=== PATIENT | female | born 1975 | race American Indian/Alaskan Native ===

== ENCOUNTER 2019-02-09 05:07 | Inpatient (IN) | payer OTHER ==
[2019-02-09] MEDS ORDERED: SOLU-Medrol IM ONE (05:38)
[2019-02-09] MEDS ORDERED: DUONEB *Not for PRN Use IH ONE ×2 (05:38→06:55)
--- NOTE | 2019-02-09 05:55 | Emergency Department Report ---
<JOVANNA CHAPMAN - Last Filed: 02/09/19 07:42> ED Shortness of Breath HPI - General Chief Complaint: Adult Asthma Stated Complaint: DIFFICULTY IN BREATHING Time Seen by Provider: 02/09/19 05:50 Source: patient, family Mode of arrival: Ambulatory Limitations: No Limitations - History of Present Illness Initial Comments: Patient is a 44-year-old -[place] female with a history of asthma presents to the ED with complaint of acute onset persistent shortness of breath with wheezing and dry cough for the last 12 hours. Patient also complains of nasal and sinus congestion. Patient states that she has been using her albutero l nebulizer home with no relief. Patient states that the last time she used albuterol nebulizer was 3 hours ago, and even then there was no relief. Patient denies fever, chills, nausea, vomiting, dizziness, chest pain, abdominal pain, sore throat, headache, palpitations or neck pain and change in vision. MD Complaint: shortness of breath, cough, "asthma attack" -: Sudden, hour(s) (12) Severity: severe Pain Scale: 7 Quality: dull, aching Consistency: constant Improves With: nothing Worsens With: nothing Known History Of: asthma Context: recent URI Associated Symptoms: denies other symptoms, cough Treatments Prior to Arrival: bronchodilator - Related Data Home Oxygen Therapy: No ED Review of Systems Comment: All other systems reviewed and negative Constitutional: no symptoms reported, see HPI. denies: chills, fever, malaise, weakness Eyes: as per HPI. denies: eye pain, eye discharge, vision change ENT: congestion. denies: ear pain, throat pain, dental pain, hearing loss Respiratory: no symptoms reported, cough, shortness of breath, wheezing. denies: SOB with exertion Cardiovascular: as per HPI. denies: chest pain, palpitations, dyspnea on exertion, edema, syncope, paroxysmal nocturnal dyspnea Endocrine: no symptoms reported, see HPI. denies: excessive sweating, flushing, intolerance to cold, intolerance to heat, increased hunger, increased thirst, increased urine, unexplained weight gain Gastrointestinal: as per HPI. denies: abdominal pain, nausea, diarrhea Genitourinary: as per HPI. denies: urgency, dysuria, discharge Musculoskeletal: as per HPI. denies: back pain, joint swelling, arthralgia Skin: as per HPI. denies: rash, lesions Neurological: as per HPI. denies: headache, weakness, paresthesias Psychiatric: as per HPI. denies: anxiety, depression Hematological/Lymphatic: as per HPI. denies: easy bleeding, easy bruising ED Past Medical Hx - Past Medical History Previous Medical History?: Yes Hx Hypertension: Yes Hx Asthma: Yes - Surgical History Past Surgical History?: No - Social History Smoking Status: Former Smoker Substance Use Type: None ED Physical Exam - General Limitations: No Limitations General appearance: alert, in no apparent distress - Head Head exam: Present: atraumatic, normocephalic, normal inspection - Eye Eye exam: Present: normal appearance, PERRL, EOMI. Absent: scleral icterus, conjunctival injection - ENT ENT exam: Present: normal exam, mucous membranes moist, TM's normal bilaterally, normal external ear exam - Neck Neck exam: Present: normal inspection, full ROM. Absent: tenderness, meningismus, lymphadenopathy, thyromegaly - Respiratory Respiratory exam: Present: wheezes (moderately diffuse coarse wheezes throughout). Absent: respiratory distress, rales, rhonchi, chest wall tenderness, accessory muscle use, decreased breath sounds, prolonged expiratory - Cardiovascular Cardiovascular Exam: Present: normal rhythm, tachycardia, normal heart sounds. Absent: systolic murmur, diastolic murmur, rubs, gallop - GI/Abdominal GI/Abdominal exam: Present: soft, normal bowel sounds. Absent: tenderness, guarding, rebound, hyperactive bowel sounds, hypoactive bowel sounds, organomegaly - Rectal Rectal exam: Present: deferred - Extremities Exam Extremities exam: Present: normal inspection, full ROM, normal capillary refill - Back Exam Back exam: Present: normal inspection. Absent: full ROM, tenderness, CVA tenderness (R), CVA tenderness (L), muscle spasm, paraspinal tenderness, vertebral tenderness - Neurological Exam Neurological exam: Present: alert, oriented X3, CN II-XII intact, normal gait, reflexes normal - Psychiatric Psychiatric exam: Present: normal affect, normal mood - Skin Skin exam: Present: warm, dry, intact, normal color. Absent: rash ED Course - Reevaluation(s) Reevaluation #1: 02/09/19 07:42 Patient is alert and oriented 3 and is not in distress. Chest x-ray shows no acute cardiopulmonary abnormalities. Patient was treated in the ED with DuoNeb treatment, Solu-Medrol. Labs were drawn. On reevaluation, patient still wheezing and tight. Another DuoNeb was ordered as well as ABG. ED Medical Decision Making - Lab Data Result diagrams: 02/09/19 07:04 02/09/19 07:04 - Radiology Data Radiology results: report reviewed, image reviewed NO ACUTE CARDIOPULMONARY ABNORMALITY - Medical Decision Making Patient is alert and oriented 3 and is not in distress. Chest x-ray shows no acute cardiopulmonary abnormalities. Patient was treated in the ED with DuoNeb treatment, Solu-Medrol. Labs were drawn. On reevaluation, patient still wheezing and tight. Another DuoNeb was ordered as well as ABG. Patient care was transferred to Ms. Ba Mack PA-C at shift change. Ms. Garcia shall review lab test results and reevaluate the patient and make a ppropriate disposition - Differential Diagnosis asthma exacerabion, acute URI, Shortness of breath ED Disposition Clinical Impression: Asthmatic bronchitis with acute exacerbation Qualifiers: Asthma severity: mild Asthma persistence: intermittent Qualified Code(s): J45.21 - Mild intermittent asthma with (acute) exacerbation Disposition: OP ADMIT IP TO THIS HOSP Condition: Stable Instructions: Asthma (ED) Referrals: ANATOLIY TRIANA MD [Primary Care Provider] - 3-5 Days <DALLIN GARCIA - Last Filed: 02/09/19 08:53> ED Review of Systems ROS: Stated complaint: DIFFICULTY IN BREATHING Other details as noted in HPI ED Physical Exam - Respiratory Respiratory exam: Present: wheezes - Cardiovascular Cardiovascular Exam: Present: tachycardia - Neurological Exam Neurological exam: Present: alert, oriented X3 - Psychiatric Psychiatric exam: Present: normal affect, normal mood - Skin Skin exam: Present: warm, dry, intact, normal color. Absent: rash ED Course Vital Signs 02/09/19 02/09/19 05:11 08:01 Temperature 98.8 F 98.8 F Pulse Rate 111 H 116 H Respiratory 22 22 Rate Blood Pressure 181/114 Blood Pressure 148/88 [Right] O2 Sat by Pulse 96 96 Oximetry ED Medical Decision Making - Lab Data Result diagrams: 02/09/19 07:04 02/09/19 07:04 - Medical Decision Making Patient's alert and oriented 3. Reevaluation of patient she is still wheezing and tight. She started Tachycardic. Spoke to Dr. Myles regards the patient needs to be admitted. ABG was ordered by my colleague. Levaquin 500 mg IV ordered to give the patient now will consult hospitalist for evaluation to be admitted for asthma exacerbation. Discussed with Dr. Campos hospitalist to admit patient to medical surgical unit for asthma exacerbation. Also woke magnesium 2 mg IV now. Patient is currently taken a continuous nebulizer treatment in room 40. Critical care attestation.: If time is entered above; I have spent that time in minutes in the direct care of this critically ill patient, excluding procedure time. ED Disposition Is pt being admited?: Yes Does the pt Need Aspirin: No
--- NOTE | 2019-02-09 06:06 | XRay Report ---
PROCEDURE: XR CHEST 1V AP TECHNIQUE: Chest radiograph single view. HISTORY: dyspnea, wheezing, asthma COMPARISONS: None . FINDINGS: No mediastinal shift. Cardiac silhouette is not enlarged. No pneumothorax, effusion, or focal pulmona ry opacity identified. No acute skeletal findings. IMPRESSION: No acute pulmonary finding identified. This document is electronically signed by Maurice Hicks MD., February 09 2019 06:04:10 AM ET
[2019-02-09 07:11] LABS: Basophils # (Auto) 0.1 K/mm3 (0.0-0.1); Basophils % (Auto) 0.7 % (0.0-1.8); Eosinophils # (Auto) 0.4 K/mm3 (0.0-0.4); Eosinophils % (Auto) 3.5 % (0.0-4.3); Hematocrit 38.8 % (30.3-42.9); Hemoglobin 13.2 gm/dl (10.1-14.3); Lymphocytes # (Auto) 1.6 K/mm3 (1.2-5.4); Lymphocytes % (Auto) 16.1 % (13.4-35.0); Mean Corpuscular HGB Conc 34 % (30-34); Mean Corpuscular Volume 91 fl (79-97); Monocytes # (Auto) 0.7 K/mm3 (0.0-0.8); Monocytes % (Auto) 6.5 % (0.0-7.3); Platelet Count 421 K/mm3 (140-440); Red Blood Count 4.25 M/mm3 (3.65-5.03); Red Cell Distribution Width 14.6 % (13.2-15.2)
[2019-02-09 07:30] LABS: Alanine Aminotransferase 16 units/L (7-56); Albumin 4.3 g/dL (3.9-5); BUN/Creatinine Ratio 15; Blood Urea Nitrogen 6 mg/dL (7-17); Hemolysis Index 23
[2019-02-09] MEDS ORDERED: LEVAQUIN 500MG/100ML 500 MG/100 ML BAG IV ONE (08:02)
[2019-02-09 08:20] LABS: HCG Qualitative,Urine Negative (Negative)
[2019-02-09 08:24] LABS: Bacteria,Urine 1+ /HPF (Negative); Bilirubin,Urine NEG (Negative); Blood,Urine NEG (Negative); Color,Urine Straw (Yellow); Protein,Urine <15 mg/dL mg/dL (Negative); Urobilinogen,Urine < 2.0 mg/dL (<2.0); WBC,Urine < 1.0 /HPF (0.0-6.0)
[2019-02-09] MEDS ORDERED: ATROVENT IH ONE (08:39)
[2019-02-09] MEDS ORDERED: PROVENTIL IH ONE (08:39)
[2019-02-09] MEDS ORDERED: MAGNESIUM SULFATE 2GM/50ML 2 GM/50 ML BAG IV ONE (08:52)
[2019-02-09] MEDS ORDERED: REGLAN IV PRN (10:44)
--- NOTE | 2019-02-09 10:50 | History and Physical Report ---
History of Present Illness Date of admission: 02/09/19 08:51 Chief complaint: SOB History of present illness: Patient is a 44 yo woman with a history of Asthma and Hypertension who presents to [facility] ED with SOB, wheezing and non productive excessive coughing with substernal chest pains that started by about 1 days ago. She drove 11 hours to [place], [place] for and returned Wednesday, January 30, 2019. 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 She tried 3 albuterol nebulizer treatments without any relief of the SOB. Over the last week she has been experiencing BADILLO with minimal activity. She did have left sided chest pains, described as a transient catching sensation about 1 week ago. The SOB is now constant, at rest and worsening without relieving factors. The substernal chest pains is non-radiating, intermittent and only occurs with coughing. She denies fever, chills, n/v/abd pains, severe headaches. She will be admitted for Acute severe persistent asthma exacerbation failing outpatient therapy associated with slight hypoexemia on ABG. PMH: as hpi PSH: Tubal ligation, LOOP steeple jack procedure SH: nonsmoker but does smoke, occasional ETOH, no illegal drugs FH: Father of heart attack age 42, mother has hypertension PCP: Magi Lucas [place] ROS: Constitutional: denies: fever ENT: denies: throat or neck pain Respiratory: + cough, shortness of breath Cardiovascular: + chest pain Endocrine: denies unexplained weight loss or gain Gastrointestinal: denies: abdominal pain, nausea Genitourinary: denies: dysuria Rectal: denies no incontinence, no bleeding, no itching, no discharge Musculoskeletal: denies swelling, myaglia, muscle weakness Skin: denies: rash Neurological: denies: headache Hematological/Lymphatic: denies: easy bleeding or easy bruising Allergic/Immunologic: no urticaria, no allergic rhinitis, no anaphylaxis Psych: denies sadness or hopelessness, SI/HI Medications and Allergies Allergies Allergy/AdvReac Type Severity Reaction Status Date / Time tramadol Allergy Nausea Verified 02/09/19 09:20 lisinopril AdvReac Angioedema Verified 02/09/19 09:20 Home Medications Medication Instructions Recorded Confirmed Last Taken Type Aspirin 325 mg PO QDAY 02/09/19 02/09/19 Unknown History Levalbuterol Tartrate [Xopenex Hfa] 15 gm IH PRN 02/09/19 02/09/19 Unknown History amLODIPine [Norvasc] 5 mg PO DAILY 02/09/19 02/09/19 02/09/19 History hydroCHLOROthiazide [HCTZ] 25 mg PO QDAY 02/09/19 02/09/19 02/09/19 History Active Meds: Active Medications Acetaminophen (Tylenol) 650 mg PO Q6H PRN PRN Reason: Non Cardiac Pain or Temp>100.5 Albuterol (Proventil) 2.5 mg IH Q4HRT PRN PRN Reason: Shortness Of Breath Albuterol/Ipratropium (Duoneb *Not For Prn Use*) 1 ampul IH QIDRT [facility] Heparin Sodium (Porcine) (Heparin) 5,000 unit SUB-Q Q12HR [facility] Levofloxacin (Levaquin) 750 mg PO Q24HR PRITI Methylprednisolone Sodium Succinate (Solu-Medrol) 80 mg IV Q8HR PRITI Pantoprazole Sodium (Protonix) 40 mg PO QDAY PRITI Polyethylene Glycol (Miralax 3350) 17 gm PO QDAY PRN PRN Reason: Constipation Potassium Chloride (K-Dur) 40 meq PO ONCE ONE Stop: 02/09/19 10:44 Zolpidem Tartrate (Ambien) 5 mg PO QHS PRN PRN Reason: Sleep Exam - Physical Exam Narrative exam: Gen: WDWN, NAD, Awake, Alert, Orientated x 3, BMI 50.4 HEENT: NCAT, EOMI, PERRL, OP Clear Neck: supple, no adenopathy, no thyromegaly, no JVD CVS/Heart: RRR, normal S1S2, pulses present bilaterally Chest/Lungs: diminished bs bilateral, bilateral wheezing, Symmetrical chest expansion, good air entry bilaterally GI/Abdomen: soft, NTND, good bowel sounds, no guarding or rebound /Bladder: no suprapubic tenderness, no CVA or paraspinal tenderness Extermity/Skin: no c/c/e, no obvious rash MSK: FROM x 4 Neuro: CN 2-12 grossly intact, no new focal deficits Psych: calm - Constitutional Vitals: Temp Pulse Resp BP Pulse Ox 98.9 F 126 H 18 134/76 97 02/09/19 10:25 02/09/19 10:25 02/09/19 10:25 02/09/19 10:25 02/09/19 10:25 Results - Labs CBC & Chem 7: 02/09/19 07:04 02/09/19 07:04 Labs: Abnormal lab results 02/09/19 02/09/19 02/09/19 Range/Units 07:04 07:04 08:37 Seg Neutrophils % 73.2 H (40.0-70.0) % POC ABG pCO2 30.1 L (35-45) POC ABG pO2 63 L (80-105) Potassium 3.4 L (3.6-5.0) mmol/L BUN 6 L (7-17) mg/dL Creatinine 0.4 L (0.7-1.2) mg/dL Glucose 113 H (65-100) mg/dL Total Protein 8.6 H (6.3-8.2) g/dL Assessment and Plan Patient is a 44 yo woman with a history of Asthma and Hypertension who presents to [facility] ED with SOB, wheezing and non productive excessive coughing with substernal chest pains that started by about 1 days ago. She drove 11 hours to [place], [place] for and returned Wednesday, January 30, 2019. 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 She tried 3 albuterol nebulizer treatments without any relief of the SOB. Over the last week she has been experiencing BADILLO with minimal activity. She did have left sided chest pains, described as a transient catching sensation about 1 week ago. The SOB is now constant, at rest and worsening without relieving factors. The substernal chest pains is non-radiating, intermittent and only occurs with coughing. She denies fever, chills, n/v/abd pains, severe headaches. She will be admitted for Acute severe persistent asthma exacerbation failing outpatient therapy associated with slight hypoexemia on ABG. -Acute Asthmatic Bronchitis with exacerbation: treat with different neb than albuterol, use Duoneb around the clock, treat with iv steroid and Levaquin -Suspect Acute hypoxic respiratory failure: treat with O2, nebs, consulted Pulmonology -Hypoxia and long distance travel: get D-dimer, if abnormal, will evaluate for PE and DVT -Morbid Obesity, bmi 50.4: area counselor on weight reduction, check TSH -Hypokalemia: replete and recheck in am as well as Magnesium level -Chest pains, with risk factors: area counselor on needing stress test when this current illness subsides, check Troponin and lipids -DVT prophylaxis: sq heparin -Second hand smoke exposure: counseled at bedside to stop smoking. Medical Reconciliation done full code CCT 32 minutes
[2019-02-09] MEDS: TYLENOL PO PRN (11:25)
[2019-02-09] MEDS ORDERED: K-DUR PO ONE (12:00)
[2019-02-09] MEDS ORDERED: MIRALAX 3350 PO PRN (12:00)
[2019-02-09] MEDS ORDERED: PROVENTIL IH PRN (12:00)
[2019-02-09] MEDS: NORVASC PO SCH (12:11)
[2019-02-09] MEDS: ASPIRIN PO SCH (12:12)
[2019-02-09] MEDS: PROTONIX PO SCH (12:17)
[2019-02-09] MEDS: DUONEB *Not for PRN Use IH SCH ×3 (12:19→19:59)
--- NOTE | 2019-02-09 12:43 | Consultation ---
History of Present Illness Consult date: 02/09/19 Requesting physician: ARMAAN POLLARD Reason for consult: asthma, hypoxemia History of present illness: 44 y/o obese female, admitted with acute exacerbation of asthma. Patient denies any recent sick contacts, changes in medications or any other changes. At baseline her asthma is very well controlled as she is only on a rescue inhaler as needed and no maintenance therapy. Yesterday her breathing acutely got worse but has been abnormal since arriving back from [facility] after driving there. She does have some pleuritic type chest pain. Past History Past Medical History: hypertension, other (asthma) Social history: no significant social history Family history: no significant family history Medications and Allergies Allergies Allergy/AdvReac Type Severity Reaction Status Date / Time tramadol Allergy Nausea Verified 02/09/19 09:20 lisinopril AdvReac Angioedema Verified 02/09/19 09:20 Home Medications Medication Instructions Recorded Confirmed Last Taken Type Aspirin 325 mg PO QDAY 02/09/19 02/09/19 Unknown History Levalbuterol Tartrate [Xopenex Hfa] 15 gm IH PRN 02/09/19 02/09/19 Unknown History amLODIPine [Norvasc] 5 mg PO DAILY 02/09/19 02/09/19 02/09/19 History hydroCHLOROthiazide [HCTZ] 25 mg PO QDAY 02/09/19 02/09/19 02/09/19 History Active Meds: Active Medications Acetaminophen (Tylenol) 650 mg PO Q6H PRN PRN Reason: Non Cardiac Pain or Temp>100.5 Last Admin: 02/09/19 11:25 Dose: 650 mg Documented by: Albuterol (Proventil) 2.5 mg IH Q4HRT PRN PRN Reason: Shortness Of Breath Albuterol/Ipratropium (Duoneb *Not For Prn Use*) 1 ampul IH QIDRT [facility] Last Admin: 02/09/19 12:19 Dose: 1 ampul Documented by: Amlodipine Besylate (Norvasc) 5 mg PO DAILY [facility] Last Admin: 02/09/19 12:11 Dose: 5 mg Documented by: Aspirin (Aspirin) 325 mg PO QDAY [facility] Last Admin: 02/09/19 12:12 Dose: 325 mg Documented by: Heparin Sodium (Porcine) (Heparin) 5,000 unit SUB-Q Q12HR [facility] Hydrochlorothiazide (Hctz) 25 mg PO QDAY [facility] Levofloxacin (Levaquin) 750 mg PO Q24HR [facility] Methylprednisolone Sodium Succinate (Solu-Medrol) 80 mg IV Q8HR PRITI Metoclopramide HCl (Reglan) 10 mg IV Q8H PRN PRN Reason: Nausea And Vomiting Pantoprazole Sodium (Protonix) 40 mg PO QDAY [facility] Last Admin: 02/09/19 12:17 Dose: 40 mg Documented by: Polyethylene Glycol (Miralax 3350) 17 gm PO QDAY PRN PRN Reason: Constipation Zolpidem Tartrate (Ambien) 5 mg PO QHS PRN PRN Reason: Sleep Review of Systems All systems: negative Physical Examination Vital signs: Vital Signs Temp Pulse Resp BP Pulse Ox 98.8 F 111 H 22 181/114 96 02/09/19 05:11 02/09/19 05:11 02/09/19 05:11 02/09/19 05:11 02/09/19 05:11 General appearance: alert, appears uncomfortable Eyes: non-icteric ENT: oropharynx moist Neck: supple, other (large in circumference) Effort: mildly labored Ascultation: Bilateral: wheezes Percussion: Bilateral: not dull Tactile fremitus: Bilateral: normal Cardiovascular: regular rate and rhythm Gastrointestinal: normoactive bowel sounds, soft Extremities: no edema Musculoskeletal: no deformities normal mental status, non-focal exam Results - Laboratory Findings CBC and BMP: 02/09/19 07:04 02/09/19 07:04 ABG POC ABG pH 7.444 (7.35-7.45) 02/09/19 08:37 POC ABG pCO2 30.1 (35-45) L 02/09/19 08:37 POC ABG pO2 63 (80-105) L 02/09/19 08:37 POC ABG HCO3 20.6 (22-26 mml/L) 02/09/19 08:37 POC ABG Total CO2 22 (23-27mmol/L) 02/09/19 08:37 POC ABG O2 Sat 93 02/09/19 08:37 PT/INR, D-dimer 591.51 ng/mlDDU (0-234) H 02/09/19 10:57 Abnormal lab findings: Abnormal Labs 02/09/19 02/09/19 02/09/19 07:04 07:04 08:37 Seg Neutrophils % 73.2 H D-Dimer POC ABG pCO2 30.1 L POC ABG pO2 63 L Potassium 3.4 L BUN 6 L Creatinine 0.4 L Glucose 113 H Total Protein 8.6 H 02/09/19 10:57 Seg Neutrophils % D-Dimer 591.51 H POC ABG pCO2 POC ABG pO2 Potassium BUN Creatinine Glucose Total Protein - Diagnostic Findings Chest x-ray: image reviewed (no evidence of acute disease) Assessment and Plan 44 y/o obese female admitted with acute asthma exacerbation 1. Agree with checking CTA to rule out PE given recent history. 2. Will change steroids to 60q6 3. Will add BID pulmicort therapy 4. BP control Will continue to follow with you.
[2019-02-09] MEDS: SOLU-Medrol IV SCH ×3 (13:53→23:52)
[2019-02-09] MEDS ORDERED: SOLU-Medrol IV SCH (14:00)
[2019-02-09] MEDS ORDERED: APRESOLINE IV PRN (14:04)
--- NOTE | 2019-02-09 15:11 | Vascular Lab Report ---
PROCEDURE: VL VENOUS DUPLEX LE BILAT TECHNIQUE: Duplex Doppler sonography of the BILATERAL legs. Collins scale imaging with and without comp ression, spectral waveform analysis with and without augmentation, and color flow Doppler were employ ed. HISTORY: sob COMPARISONS: None FINDINGS: RIGHT LOWER EXTREMITY: Deep Venous Thrombus: None Superficial Venous Thrombus: None Venous valvular incompetence: None Soft tissue abnormality: None LEFT LOWER EXTREMITY: Deep Venous Thrombus: None Superficial Venous Thrombus: None Venous valvular incompetence: None Soft tissue abnormality: None IMPRESSION: No evidence of deep venous thrombosis This document is electronically signed by Scarlett Landrum MD., February 09 2019 03:08:49 PM ET
[2019-02-09] MEDS: PULMICORT IH SCH ×2 (15:20→19:59)
--- NOTE | 2019-02-09 15:45 | Cat Scan Report ---
CTA CHEST: HISTORY: Short of breath, hypoxia, long-distance travel. COMPARISON: none. TECHNIQUE: Helical CT in 1.25mm intervals following IV contrast. Pulmonary embolus protocol. Sagittal and coronal reformatted images. Rotational MIP images. FINDINGS: Contrast bolus is satisfactory. No pulmonary embolus is identified. Thyroid gland: Normal. Tracheobronchial tree: Normal. Esophagus: Normal. Heart: Normal. Pericardium: Normal. Mediastinum: Normal. Lung Mahmood: Normal. Pleural Spaces: Normal. Musculoskeletal: Normal. IMPRESSION: No evidence for pulmonary embolus. Unremarkable CT chest with contrast.
[2019-02-09] MEDS ORDERED: SOLU-Medrol IV ONE (20:34)
[2019-02-09] MEDS: AMBIEN PO PRN (21:50)
[2019-02-10] MEDS: SOLU-Medrol IV SCH ×4 (05:09→23:30)
[2019-02-10] MEDS: PULMICORT IH SCH ×2 (07:39→19:32)
[2019-02-10] MEDS: DUONEB *Not for PRN Use IH SCH ×4 (07:39→19:32)
[2019-02-10 08:09] LABS: Hematocrit 38.2 % (30.3-42.9); Hemoglobin 12.7 gm/dl (10.1-14.3); Mean Corpuscular HGB Conc 33 % (30-34); Mean Corpuscular Volume 92 fl (79-97); Platelet Count 437 K/mm3 (140-440); Red Blood Count 4.16 M/mm3 (3.65-5.03); Red Cell Distribution Width 14.8 % (13.2-15.2)
--- NOTE | 2019-02-10 08:41 | Progress Note ---
Assessment and Plan Assessment and plan: Patient is a 44 yo woman with a history of Asthma and Hypertension who presents to [facility] with SOB, wheezing and non productive excessive coughing with substernal chest pains that started by about 1 days ago. She drove 11 hours to [place], [place] for and returned Wednesday, January 30, 2019. 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 She tried 3 albuterol nebulizer treatments without any relief of the SOB. Over the last week she has been experiencing BADILLO with minimal activity. She did have left sided chest pains, described as a transient catching sensation about 1 week ago. The SOB is now constant, at rest and worsening without relieving factors. The substernal chest pains is non-radiating, intermittent and only occurs with coughing. She denies fever, chills, n/v/abd pains, severe headaches. She will be admitted for Acute severe persistent asthma exacerbation failing outpatient therapy associated with slight hypoexemia on ABG. -Acute Asthmatic Bronchitis with exacerbation: treat with different neb than albuterol, use Duoneb around the clock, treat with iv steroid and Levaquin -Suspect Acute hypoxic respiratory failure: treat with O2, nebs, consulted Pulmonology -Elevated D-dimer with negative CTA chest and venous leg dopplers -Hypoxia and long distance travel: get D-dimer, if abnormal, will evaluate for PE and DVT -Morbid Obesity, bmi 50.4: senior counsel on weight reduction, check TSH -Hypokalemia: replete and recheck in am as well as Magnesium level -Chest pains, with risk factors: senior counsel on needing stress test when this current illness subsides, check Troponin and lipids -DVT prophylaxis: sq heparin -Second hand smoke exposure: counseled at bedside to stop smoking. Medical Reconciliation done full code Disposition: continue inpatient care, anticipate d/c soon. History Interval history: Patient was seen and examined. Follow-up on current diagnosis of Asthma exacerbation with hypoxemia. No overnight events reported to me. Patient denies any chest pain, shortness breath, nausea/vomiting or severe headaches. Imaging, nursing note, chart, labs and old chart reviewed. Discussed with patient. Hospitalist Physical - Physical exam Narrative exam: Gen: WDWN, NAD, Awake, Alert, Orientated x 3, BMI 50.4 HEENT: NCAT, EOMI, PERRL, OP Clear Neck: supple, no adenopathy, no thyromegaly, no JVD CVS/Heart: RRR, normal S1S2, pulses present bilaterally Chest/Lungs: diminished bs bilateral, bilateral wheezing, Symmetrical chest expansion, good air entry bilaterally GI/Abdomen: soft, NTND, good bowel sounds, no guarding or rebound /Bladder: no suprapubic tenderness, no CVA or paraspinal tenderness Extermity/Skin: no c/c/e, no obvious rash MSK: FROM x 4 Neuro: CN 2-12 grossly intact, no new focal deficits Psych: calm - Constitutional Vitals: Temp Pulse Resp BP Pulse Ox 98.4 F 104 H 20 113/68 96 02/10/19 05:59 02/10/19 08:03 02/10/19 08:03 02/10/19 05:59 02/10/19 07:39 Results - Labs CBC & Chem 7: 02/10/19 07:18 02/09/19 07:04 Labs: Laboratory Last Values WBC 16.8 K/mm3 (4.5-11.0) H 02/10/19 07:18 RBC 4.16 M/mm3 (3.65-5.03) 02/10/19 07:18 Hgb 12.7 gm/dl (10.1-14.3) 02/10/19 07:18 Hct 38.2 % (30.3-42.9) 02/10/19 07:18 MCV 92 fl (79-97) 02/10/19 07:18 MCH 31 pg (28-32) 02/10/19 07:18 MCHC 33 % (30-34) 02/10/19 07:18 RDW 14.8 % (13.2-15.2) 02/10/19 07:18 Plt Count 437 K/mm3 (140-440) 02/10/19 07:18 Lymph % (Auto) 16.1 % (13.4-35.0) 02/09/19 07:04 [place] % (Auto) 6.5 % (0.0-7.3) 02/09/19 07:04 Eos % (Auto) 3.5 % (0.0-4.3) 02/09/19 07:04 Baso % (Auto) 0.7 % (0.0-1.8) 02/09/19 07:04 Lymph # 1.6 K/mm3 (1.2-5.4) 02/09/19 07:04 [place] # 0.7 K/mm3 (0.0-0.8) 02/09/19 07:04 Eos # 0.4 K/mm3 (0.0-0.4) 02/09/19 07:04 Baso # 0.1 K/mm3 (0.0-0.1) 02/09/19 07:04 Seg Neutrophils % 73.2 % (40.0-70.0) H 02/09/19 07:04 Seg Neutrophils # 7.5 K/mm3 (1.8-7.7) 02/09/19 07:04 591.51 ng/mlDDU (0-234) H 02/09/19 10:57 POC ABG pH 7.444 (7.35-7.45) 02/09/19 08:37 POC ABG pCO2 30.1 (35-45) L 02/09/19 08:37 POC ABG pO2 63 (80-105) L 02/09/19 08:37 POC ABG HCO3 20.6 (22-26 mml/L) 02/09/19 08:37 POC ABG Total CO2 22 (23-27mmol/L) 02/09/19 08:37 POC ABG O2 Sat 93 02/09/19 08:37 POC ABG Base Excess -3 ((-2) - (+3)mmol/L) 02/09/19 08:37 21 % 02/09/19 08:37 Sodium 139 mmol/L (137-145) 02/09/19 07:04 Potassium 3.4 mmol/L (3.6-5.0) L 02/09/19 07:04 Chloride 98.0 mmol/L (98-107) 02/09/19 07:04 Carbon Dioxide 24 mmol/L (22-30) 02/09/19 07:04 20 mmol/L 02/09/19 07:04 BUN 6 mg/dL (7-17) L 02/09/19 07:04 0.4 mg/dL (0.7-1.2) L 02/09/19 07:04 Estimated GFR > 60 ml/min 02/09/19 07:04 15 % 02/09/19 07:04 Glucose 113 mg/dL (65-100) H 02/09/19 07:04 Calcium 9.0 mg/dL (8.4-10.2) 02/09/19 07:04 < 0.20 mg/dL (0.1-1.2) 02/09/19 07:04 AST 24 units/L (5-40) 02/09/19 07:04 ALT 16 units/L (7-56) 02/09/19 07:04 52 units/L (35-129) 02/09/19 07:04 < 0.010 ng/mL (0.00-0.029) 02/09/19 11:06 NT-Pro-B Natriuret Pep 25.67 pg/mL (0-450) 02/09/19 07:04 8.6 g/dL (6.3-8.2) H 02/09/19 07:04 4.3 g/dL (3.9-5) 02/09/19 07:04 1.0 % 02/09/19 07:04 Straw (Yellow) 02/09/19 08:02 Clear (Clear) 02/09/19 08:02 7.0 (5.0-7.0) 02/09/19 08:02 Ur Specific [place] 1.006 (1.003-1.030) 02/09/19 08:02 <15 mg/dl mg/dL (Negative) 02/09/19 08:02 Neg mg/dL (Negative) 02/09/19 08:02 Neg mg/dL (Negative) 02/09/19 08:02 Neg (Negative) 02/09/19 08:02 Neg (Negative) 02/09/19 08:02 Neg (Negative) 02/09/19 08:02 < 2.0 mg/dL (<2.0) 02/09/19 08:02 Ur Leukocyte Esterase Neg (Negative) 02/09/19 08:02 < 1.0 /HPF (0.0-6.0) 02/09/19 08:02 1.0 /HPF (0.0-6.0) 02/09/19 08:02 U Epithel Cells (Auto) < 1.0 /HPF (0-13.0) 02/09/19 08:02 1+ /HPF (Negative) 02/09/19 08:02 Urine HCG, Qual Negative (Negative) 02/09/19 08:02 Active Medications - Current Medications Current Medications: Generic Name Dose Route Start Last Admin Trade Name Freq PRN Reason Stop Dose Admin Acetaminophen 650 mg 02/09/19 10:43 02/09/19 11:25 Tylenol PO 650 mg Q6H PRN Administration Non Cardiac Pain or Temp>100.5 Albuterol 2.5 mg 02/09/19 12:00 Proventil IH Q4HRT PRN Shortness Of Breath Albuterol/Ipratropium 1 ampul 02/09/19 12:00 02/10/19 07:39 Duoneb *Not For Prn Use* IH 1 ampul QIDRT PRITI Administration Amlodipine Besylate 5 mg 02/09/19 12:00 02/09/19 12:11 Norvasc PO 5 mg DAILY PRITI Administration Aspirin 325 mg 02/09/19 12:00 02/09/19 12:12 Aspirin PO 325 mg QDAY PRITI Administration Budesonide 0.5 mg 02/09/19 13:00 02/10/19 07:39 Pulmicort IH 0.5 mg Q12HRT PRITI Administration Heparin Sodium (Porcine) 5,000 unit 02/10/19 10:44 Heparin SUB-Q Q12HR PRITI Hydralazine HCl 10 mg 02/09/19 14:04 Apresoline IV Q4HR PRN Blood Pressure Hydrochlorothiazide 25 mg 02/10/19 10:00 Hctz PO QDAY PRITI Levofloxacin 750 mg 02/10/19 10:00 Levaquin PO Q24HR PRITI Methylprednisolone Sodium Succinate 60 mg 02/09/19 13:00 02/10/19 05:09 Solu-Medrol IV 60 mg Q6HR PRITI Administration Metoclopramide HCl 10 mg 02/09/19 10:44 Reglan IV Q8H PRN Nausea And Vomiting Pantoprazole Sodium 40 mg 02/09/19 12:00 02/09/19 12:17 Protonix PO 40 mg QDAY PRITI Administration Polyethylene Glycol 17 gm 02/09/19 12:00 Miralax 3350 PO QDAY PRN Constipation Zolpidem Tartrate 5 mg 02/09/19 22:00 02/09/19 21:50 Ambien PO 5 mg QHS PRN Administration Sleep
[2019-02-10 08:44] LABS: BUN/Creatinine Ratio 13; Blood Urea Nitrogen 10 mg/dL (7-17); Calcium 8.9 mg/dL (8.4-10.2); Chol/HDL Ratio 3.14 %; HDL Cholesterol 85 mg/dL (40-59); Hemolysis Index 5; LDL Cholesterol,Direct 186 mg/dL (50-130)
[2019-02-10] MEDS: ASPIRIN PO SCH (09:36)
[2019-02-10] MEDS: LEVAQUIN PO SCH (09:36)
[2019-02-10] MEDS: NORVASC PO SCH (09:37)
[2019-02-10] MEDS: HCTZ PO SCH (09:38)
[2019-02-10] MEDS: PROTONIX PO SCH (09:39)
[2019-02-10] MEDS: HEPARIN SUB-Q SCH ×2 (10:26→21:38)
--- NOTE | 2019-02-10 11:59 | Progress Note ---
Assessment and Plan 44 y/o obese female admitted with acute asthma exacerbation 1. Continue IV steroids 2. Continue Pulmicort therapy. 3. BP control 4. Agree with IMS in regards to addressing anxiety Will continue to follow with you. Subjective Date of service: 02/10/19 Interval history: Patient not in room and not able to find on 3rd floor. CTA negative and Dopplers negative. Objective Vital Signs - 12hr 02/10/19 02/10/19 02/10/19 05:59 07:39 07:40 Temperature 98.4 F Pulse Rate 106 H Pulse Rate [ 101 H Throughout] Respiratory 22 Rate Respiratory 20 Rate [ Throughout] Blood Pressure 113/68 O2 Sat by Pulse 92 96 Oximetry 02/10/19 02/10/19 08:03 09:37 Temperature Pulse Rate 102 H Pulse Rate [ 104 H Throughout] Respiratory Rate Respiratory 20 Rate [ Throughout] Blood Pressure 100/59 O2 Sat by Pulse Oximetry Constitutional: alert, appears uncomfortable Eyes: non-icteric ENT: oropharynx moist Neck: supple, other (large in circumference) Effort: mildly labored Ascultation: Bilateral: wheezes Percussion: Bilateral: not dull Tactile fremitus: Bilateral: normal Cardiovascular: regular rate and rhythm Gastrointestinal: normoactive bowel sounds, soft Extremities: no edema Neurologic: normal mental status, non-focal exam CBC and BMP: 02/10/19 07:18 02/10/19 07:18 ABG, PT/INR, D-dimer: ABG POC ABG pH 7.444 (7.35-7.45) 02/09/19 08:37 POC ABG pCO2 30.1 (35-45) L 02/09/19 08:37 POC ABG pO2 63 (80-105) L 02/09/19 08:37 POC ABG HCO3 20.6 (22-26 mml/L) 02/09/19 08:37 POC ABG Total CO2 22 (23-27mmol/L) 02/09/19 08:37 POC ABG O2 Sat 93 02/09/19 08:37 PT/INR, D-dimer 591.51 ng/mlDDU (0-234) H 02/09/19 10:57 Abnormal lab findings: Abnormal Labs 02/09/19 02/09/19 02/09/19 07:04 07:04 08:37 WBC Seg Neutrophils % 73.2 H D-Dimer POC ABG pCO2 30.1 L POC ABG pO2 63 L Potassium 3.4 L Carbon Dioxide BUN 6 L Creatinine 0.4 L Glucose 113 H Total Protein 8.6 H Cholesterol LDL Cholesterol Direct HDL Cholesterol 02/09/19 02/10/19 02/10/19 10:57 07:18 07:18 WBC 16.8 H Seg Neutrophils % D-Dimer 591.51 H POC ABG pCO2 POC ABG pO2 Potassium Carbon Dioxide 18 L BUN Creatinine Glucose 155 H Total Protein Cholesterol 267 H LDL Cholesterol Direct 186 H HDL Cholesterol 85 H
[2019-02-10] MEDS ORDERED: PROVENTIL IH PRN (16:31)
[2019-02-10] MEDS: TYLENOL PO PRN (16:56)
[2019-02-10] MEDS: BROVANA NEBU IH SCH (19:32)
[2019-02-10] MEDS: AMBIEN PO PRN (21:39)
[2019-02-11] MEDS: SOLU-Medrol IV SCH ×2 (05:13→13:19)
[2019-02-11] MEDS: COLACE PO SCH ×2 (05:13→10:32)
[2019-02-11] MEDS: DUONEB *Not for PRN Use IH SCH ×2 (09:59→13:01)
[2019-02-11] MEDS: PULMICORT IH SCH (10:00)
[2019-02-11] MEDS: BROVANA NEBU IH SCH (10:00)
[2019-02-11] MEDS: ASPIRIN PO SCH (10:32)
[2019-02-11] MEDS: LEVAQUIN PO SCH (10:32)
[2019-02-11] MEDS: PROTONIX PO SCH (10:33)
[2019-02-11] MEDS: NORVASC PO SCH (10:33)
[2019-02-11] MEDS: HCTZ PO SCH (10:34)
[2019-02-11] MEDS: HEPARIN SUB-Q SCH (10:35)
[2019-02-11 12:01] VITALS: BP 119/61
--- NOTE | 2019-02-11 14:37 | Discharge Summary ---
Providers - Providers Date of Admission: 02/09/19 08:51 Date of discharge: 02/11/19 Attending physician: ARMAAN POLLARD 02/09/19 10:40 Consult to Physician [CONS] Routine Comment: Consulting Provider: SYLVIA REDDY Physician Instructions: I notified Reason For Exam: Asthma exacerbation, slightly hypoxic on ABG Primary care physician: SANKET YODER Hospitalization Condition: Stable Hospital course: Patient is a 44 yo woman with a history of Asthma and Hypertension who presented to [facility] ED with SOB, wheezing and non productive excessive coughing with substernal chest pains that started by about 1 day prior to arrive. She drove 11 hours to [place], [place] for and returned Wednesday, January 30, 2019. 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 She tried 3 albuterol nebulizer treatments without any relief of the SOB. Over the last week she has been experiencing BADILLO with minimal activity. She did have left sided chest pains, described as a transient catching sensation about 1 week ago. The SOB is now constant, at rest and worsening without relieving factors. The substernal chest pains is non-radiating, intermittent and ONLY occurs with coughing. She denies fever, chills, n/v/abd pains, severe headaches. She will be admitted for Acute severe persistent asthma exacerbation failing outpatient therapy associated with slight hypoexemia on ABG. -Acute Asthmatic Bronchitis with exacerbation: treat with different neb than albuterol, use Duoneb around the clock, treat with iv steroid and Levaquin -Suspect Acute hypoxic respiratory failure: treat with O2, nebs, consulted Pulmonology,input noted -Elevated D-dimer with negative CTA chest and venous leg dopplers -Hypoxia and long distance travel: get D-dimer, if abnormal, will evaluate for PE and DVT -Morbid Obesity, bmi 50.4: grief counselor on weight reduction, check TSH -Hypokalemia: replete and recheck in am as well as Magnesium level -Chest pains, with risk factors, most likely anxiety related: outpatient stress test (not done on Wednesday) and current illness needs to subside, check Troponin T negative x 2 but and lipids/LDL 186 needs treating -new Dyslipidemia: home with asa and statin, she think atorvastatin caused dizziness, she was put on ASa and atorvastatin after "mini stroke" -new insomnia: she is asking for Ambien script -New Anxiety disorder: home with Xanax, patient's youngest son committed suicide while on the phone with her -DVT prophylaxis: sq heparin -Second hand smoke exposure: counseled at bedside to stop smoking. Medical Reconciliation done full code Disposition: DC-01 TO HOME OR SELFCARE Time spent for discharge: 36 minutes Core Measure Documentation - Palliative Care Palliative Care/ Comfort Measures: Not Applicable - Core Measures Any of the following diagnoses?: none - VTE Discharge Requirements Deep Vein Thrombosis/Pulmonary Embolism Present on Admission: No Has pt received <5 days of overlap therapy or INR<2.0: No Anticoagulant overlap therapy prescribed at discharge: No Contraindication No Overlap Therapy order at DC: Not Indicated Exam - Physical Exam Narrative exam: Gen: WDWN, NAD, Awake, Alert, Orientated x 3, BMI 50.4 HEENT: NCAT, EOMI, PERRL, OP Clear Neck: supple, no adenopathy, no thyromegaly, no JVD CVS/Heart: RRR, normal S1S2, pulses present bilaterally Chest/Lungs: bilateral wheezing, Symmetrical chest expansion, good air entry bilaterally GI/Abdomen: soft, NTND, good bowel sounds, no guarding or rebound /Bladder: no suprapubic tenderness, no CVA or paraspinal tenderness Extermity/Skin: no c/c/e, no obvious rash MSK: FROM x 4 Neuro: CN 2-12 grossly intact, no new focal deficits Psych: calm - Constitutional Vitals: Temp Pulse Resp BP Pulse Ox 98.1 F 99 H 14 119/61 94 02/11/19 11:32 02/11/19 13:10 02/11/19 13:10 02/11/19 11:32 02/11/19 11:32 Plan Activity: other (no strenous activity until cleared by Railway Signal [employer] with stress test) Diet: low salt Special Instructions: record daily BP diary Additional Instructions: See Dr. Henderson for stress test Follow up with: ANATOLIY TRIANA MD [Staff Physician] - 3-5 Days KELSEY HENDERSON MD [Staff Physician] - 7 Days EZ CHAN MD [Staff Physician] - 10 Days Forms: Work/School Release Form Prescriptions: Zolpidem [Ambien] 5 mg PO QHS PRN #15 tablet PRN Reason: Sleep Rosuvastatin Calcium [Crestor] 10 mg PO QHS #30 tablet guaiFENesin DM [Guaifenesin Dm Syrup] 10 ml PO Q4H PRN 7 Days oral.liqd PRN Reason: Cough levoFLOXacin [Levaquin TAB] 750 mg PO Q24HR #4 tablet methylPREDNISolone [Medrol 4MG DOSEPAK (21 tabs)] 1 dose PO DAILY #1 tab.ds.pk Polyethylene Glycol 3350 [Miralax 3350] 17 gm PO QDAY PRN #30 powd.pack PRN Reason: Constipation Pantoprazole [Protonix TAB] 40 mg PO QDAY #14 tablet ALBUTEROL NEB's [Proventil 0.083% NEBS] 2.5 mg IH Q4HRT PRN #30 nebu PRN Reason: Shortness Of Breath Budesonide/Formoterol Fumarate [Symbicort 160-4.5 Mcg Inhaler] 2 puff IH BID #1 hfa.aer.ad ALPRAZolam [Xanax TAB] 0.5 mg PO TID PRN #15 tab PRN Reason: Anxiety Levalbuterol Tartrate [Xopenex Hfa] 2 puff IH Q6H PRN #1 hfa.aer.ad PRN Reason: Shortness Of Breath Ipratropium/Albuterol Sulfate [DUONEB *Not for PRN Use*] 1 ampul IH TIDRT #30 a mpul.neb
--- NOTE | 2019-02-11 16:11 | Progress Note ---
Assessment and Plan 44 y/o obese female admitted with acute asthma exacerbation 1. No objection to discharge 2. Resume home asthma regimen 3. BP control 4. Agree with IMS in regards to addressing anxiety 5. Quick steroid taper at discharge so that it doesn't add to her anxiety. Subjective Date of service: 02/11/19 Interval history: Patient being discharged today. No acute events overnight. Objective Vital Signs - 12hr 02/11/19 02/11/19 02/11/19 06:08 10:00 10:30 Temperature 98.0 F Pulse Rate 88 Pulse Rate [ 88 Throughout] Respiratory 18 Rate Respiratory 18 Rate [ Throughout] Blood Pressure 120/74 99/52 O2 Sat by Pulse 93 93 Oximetry 02/11/19 02/11/19 02/11/19 10:33 11:32 13:01 Temperature 98.1 F Pulse Rate 97 H Pulse Rate [ 102 H Throughout] Respiratory 20 Rate Respiratory 16 Rate [ Throughout] Blood Pressure 99/52 119/61 O2 Sat by Pulse 94 Oximetry 02/11/19 13:10 Temperature Pulse Rate Pulse Rate [ 99 H Throughout] Respiratory Rate Respiratory 14 Rate [ Throughout] Blood Pressure O2 Sat by Pulse Oximetry Constitutional: alert, appears uncomfortable Eyes: non-icteric ENT: oropharynx moist Neck: supple, other (large in circumference) Effort: mildly labored Ascultation: Bilateral: wheezes Percussion: Bilateral: not dull Tactile fremitus: Bilateral: normal Cardiovascular: regular rate and rhythm Gastrointestinal: normoactive bowel sounds, soft Extremities: no edema Neurologic: normal mental status, non-focal exam CBC and BMP: 02/10/19 07:18 02/10/19 07:18 ABG, PT/INR, D-dimer: ABG POC ABG pH 7.444 (7.35-7.45) 02/09/19 08:37 POC ABG pCO2 30.1 (35-45) L 02/09/19 08:37 POC ABG pO2 63 (80-105) L 02/09/19 08:37 POC ABG HCO3 20.6 (22-26 mml/L) 02/09/19 08:37 POC ABG Total CO2 22 (23-27mmol/L) 02/09/19 08:37 POC ABG O2 Sat 93 02/09/19 08:37 PT/INR, D-dimer 591.51 ng/mlDDU (0-234) H 02/09/19 10:57 Abnormal lab findings: Abnormal Labs 02/09/19 02/09/19 02/09/19 07:04 07:04 08:37 WBC Seg Neutrophils % 73.2 H D-Dimer POC ABG pCO2 30.1 L POC ABG pO2 63 L Potassium 3.4 L Carbon Dioxide BUN 6 L Creatinine 0.4 L Glucose 113 H Total Protein 8.6 H Cholesterol LDL Cholesterol Direct HDL Cholesterol 02/09/19 02/10/19 02/10/19 10:57 07:18 07:18 WBC 16.8 H Seg Neutrophils % D-Dimer 591.51 H POC ABG pCO2 POC ABG pO2 Potassium Carbon Dioxide 18 L BUN Creatinine Glucose 155 H Total Protein Cholesterol 267 H LDL Cholesterol Direct 186 H HDL Cholesterol 85 H
== END 2019-02-11 17:45 | disposition home or self-care (01) | DRG 189 ==
LOC: ED 05:07 → 3A 08:51
PROVIDERS: ADMIT Internal Medicine; ATTEND Internal Medicine
PROC: 4A033R1 Measurement of Arterial Saturation, Peripheral, Percutaneous Approach (ICD-10-PCS; principal; 2019-02-09)
DX: J96.01 Acute respiratory failure with hypoxia (principal); Z68.43 Body mass index [BMI] 50.0-59.9, adult; J45.21 Mild intermittent asthma with (acute) exacerbation; J20.9 Acute bronchitis, unspecified; E66.01 Morbid (severe) obesity due to excess calories; I10 Essential (primary) hypertension; E87.6 Hypokalemia; E78.5 Hyperlipidemia, unspecified; G47.00 Insomnia, unspecified; F41.9 Anxiety disorder, unspecified; Z77.22 Contact with and (suspected) exposure to environmental tobacco smoke (acute) (chronic); Z71.6 Tobacco abuse counseling; Z98.51 Tubal ligation status; Z82.49 Family history of ischemic heart disease and other diseases of the circulatory system; Z79.82 Long term (current) use of aspirin; Z79.899 Other long term (current) drug therapy
CPT/HCPCS: 36415; 71045; 71275; 80048; 80053; 80061; 81001; 81025; 82803; 83735; 83880; 84443; 84484; 85025; 85027; 85379; 93005; 93010; 93306; 93970; 94640; 94760; G0378; J1644; J1956; J2920; J2930; J3475; Q9967